=== PATIENT | female | born 1975 | race African-American/Black ===

== ENCOUNTER 2016-06-15 01:48 | Emergency (ER) | payer BC, OTHER ==
[2016-06-15] MEDS ORDERED: METOCLOPRAMIDE HCL 10 MG TABLET (FP) PO ONE ×2 (01:56→02:03)
--- NOTE | 2016-06-15 01:56 | PDOC ---
History of Present Illness - General History Source: Patient <Kam Layton - Last Filed: 06/15/16 02:10> - General History Source: Patient Exam Limitations: No Limitations - History of Present Illness Initial Comments: 06/15/16 02:14 The patient is a 40 year old female with no significant past medical history who presents to the ED for less than 24 hours of nausea and abdominal pain. Patient reports her daughter and sister are also ill at home with persistent vomiting. States she developed abdominal pain and nausea, but no vomiting or diarrhea. Her LMP was 5/5. The patient denies fever, chills, cough, SOB, chest pain, and palpitations. The patient denies dysuria, hematuria, urgency, and frequency. Allergies: NKDA Social History: No alcohol, tobacco, or drug use reported. Past Surgical History: None reported PCP: Dr. Evie Copeland <Amy Lomax - Last Filed: 06/15/16 02:15> - General Stated Complaint: NAUSEA Time Seen by Provider: 06/15/16 01:55 Past History - Past Medical History Anemia: No Asthma: No Cancer: No Cardiac Disorders: No Diabetes: No HTN: No Seizures: No Thyroid Disease: No - Surgical History Abdominal Surgery: No Appendectomy: No Cardiac Surgery: No - Reproductive History (#): 2 Para: 1 Ectopic : Yes Spontaneous : 1 - Immunization History Td Vaccination: Yes TDAP Vaccination: Yes Immunization Up to Date: Yes - Psycho/Social/Smoking Cessation Hx Anxiety: No Suicidal Ideation: No Smoking Status: No Smoking History: Never smoked Have you smoked in the past 12 months: No Number of Cigarettes Smoked Daily: 0 Hx Alcohol Use: No Drug/Substance Use Hx: No Substance Use Type: None Hx Substance Use Treatment: No <CalinKam - Last Filed: 06/15/16 02:10> <Amy Lomax - Last Filed: 06/15/16 02:15> - Past Medical History Allergies/Adverse Reactions: Allergies Allergy/AdvReac Type Severity Reaction Status Date / Time No Known Drug Allergies Allergy Verified 02/01/16 05:49 Home Medications: Ambulatory Orders Zolpidem Tartrate [Ambien Cr] 12.5 mg PO HS #10 tab.mphase MDD 1 02/01/16 Zolpidem Tartrate [Ambien Cr] 12.5 mg PO PRN #25 tab.mphase MDD 1 02/01/16 Zolpidem Tartrate [Ambien Cr] 12.5 mg PO HS #30 tab.mphase MDD 1 02/27/16 Metoclopramide HCl [Reglan] 10 mg PO QID #40 tablet 06/15/16 Review of Systems - Review of Systems Able to Perform ROS?: Yes Comments:: 06/15/16 02:15 CONSTITUTIONAL: Absent: fever, no chills, no fatigue EYES: Absent: visual changes ENT: Absent: ear pain, no sore throat CARDIOVASCULAR: Absent: chest pain, no palpitations RESPIRATORY: Absent: cough, no SOB GI: +abdominal pain, nausea Absent: no vomiting, no constipation, no diarrhea GENITOURINARY: Absent: dysuria, no frequency, no hematuria MUSCULOSKELETAL: Absent: back pain, no arthralgia, no myalgia SKIN: Absent: rash NEURO: Absent: headache <Amy Lomax - Last Filed: 06/15/16 02:15> *Physical Exam - Vital Signs Last Vital Signs Temp Pulse Resp BP Pulse Ox 98 F 78 17 112/85 100 06/15/16 01:57 06/15/16 01:57 06/15/16 01:57 06/15/16 01:57 06/15/16 01:57 - Physical Exam Comments: 06/15/16 02:15 GENERAL: Well-appearing, well-nourished. No apparent distress. HEENT: Normocephalic, atraumatic. PERRL, EOM intact. CARDIOVASCULAR: Normal S1, S2. Regular rate and rhythm. PULMONARY: Clear to auscultation bilaterally. ABDOMEN: Soft, non-distended, mild diffuse tenderness. No rebound or guarding EXTREMITIES: Normal ROM in all four extremities. No gross deformities. SKIN: Warm, dry. No rash NEUROLOGICAL: No focal neurological deficits. <Amy Lomax - Last Filed: 06/15/16 02:15> ED Treatment Course - Medications Given in the ED: ED Medications Discontinued Medications Generic Name Dose Route Start Last Admin Trade Name Freq PRN Reason Stop Dose Admin Metoclopramide HCl 10 mg 06/15/16 01:56 06/15/16 02:05 Reglan - PO 06/15/16 01:57 10 mg ONCE ONE Administration <Amy Lomax - Last Filed: 06/15/16 02:15> Medical Decision Making - Medical Decision Making 06/15/16 02:11 Dr. Layton: The scribe's documentation has been prepared under my direction and personally reviewed by me in its entirery. I confirm that the note above accurately reflects all work, treatment, procedures, and medical decision making performed by me. <Kam Layton - Last Filed: 06/15/16 02:10> *DC/Admit/Observation/Transfer - Discharge Dispostion Admit: No <Kam Layton - Last Filed: 06/15/16 02:10> - Attestations Scribe Attestion: 06/15/16 02:15 Documentation prepared by Amy Lomax, acting as medical liaison for Kam Layton MD/DO. <Amy Lomax - Last Filed: 06/15/16 02:15> Diagnosis at time of Disposition: Nausea - Discharge Dispostion Disposition: HOME Condition at time of disposition: Stable - Prescriptions Prescriptions: Metoclopramide HCl [Reglan] 10 mg PO QID #40 tablet - Referrals Referrals: Evie Copeland [Primary Care Provider] - - Patient Instructions Printed Discharge Instructions: DI for Nausea -- Adult
[2016-06-15 02:01] VITALS: BP 112/85; PULSE 78; TEMP 98; BMI 30.7
== END 2016-06-15 02:28 | disposition home or self-care (01) ==
LOC: JER 01:48
DX: R11.0 Nausea (principal)
CPT/HCPCS: 99282-25

== ENCOUNTER 2017-06-29 18:39 | Emergency (ER) | payer OTHER ==
[2017-06-29 18:47] VITALS: BP 98/73; PULSE 133; TEMP 102; BMI 29.7
[2017-06-29] MEDS ORDERED: ONDANSETRON 4 MG/2 ML VIAL IVPUSH ONE (18:52)
[2017-06-29] MEDS ORDERED: SODIUM CHLORIDE 0.9% 1000 ML INFUS.BAG IV ONE (18:52)
[2017-06-29] MEDS ORDERED: ACETAMINOPHEN 1000 MG/100 ML VIAL (NON FORMULARY) IVPB ONE (18:52)
--- NOTE | 2017-06-29 18:52 | PDOC ---
History of Present Illness - General History Source: Patient, Old Records Exam Limitations: No Limitations - History of Present Illness Initial Comments: 06/29/17 19:34 The patient is a 41 year old female, with no significant past medical history, who presents to the emergency department complaining of fever, chills, sore throat, nausea, vomiting and diarrhea since this morning. She describes her vomit as nonbloody and nonbilious. She describes her diarrhea as nonbloody. She notes that its uncomfortable for her to swallow or eat anything. She reports taking 600 mg of Motrin every 4 hours, with her last dose being at 9am this morning. She denies receiving the flu shot this year. The patient denies chest pain, shortness of breath, headache or dizziness. Denies dysuria, frequency, urgency and hematuria. LMP: Current Allergies: None Past surgical history: None reported Social History: No alcohol, tobacco or drug use reported PMD: Dr. Evie Copeland <Kam Rodriguez - Last Filed: 06/29/17 19:34> <Melida Dallas - Last Filed: 06/29/17 21:14> - General Chief Complaint: Cold Symptoms Stated Complaint: FEVER Time Seen by Provider: 06/29/17 18:42 Past History <Kam Rodriguez - Last Filed: 06/29/17 19:34> - Past Medical History Anemia: No Asthma: No Cancer: No Cardiac Disorders: No COPD: No Diabetes: No HTN: No Seizures: No Thyroid Disease: No - Surgical History Abdominal Surgery: No Appendectomy: No Cardiac Surgery: No - Reproductive History (#): 2 Para: 1 Ectopic : Yes Spontaneous : 1 - Immunization History Td Vaccination: Yes TDAP Vaccination: Yes Immunization Up to Date: Yes - Suicide/Smoking/Psychosocial Hx Smoking Status: No Smoking History: Never smoked Have you smoked in the past 12 months: No Number of Cigarettes Smoked Daily: 0 Information on smoking cessation initiated: No Hx Alcohol Use: No Drug/Substance Use Hx: No Substance Use Type: None Hx Substance Use Treatment: No <Melida Dallas - Last Filed: 06/29/17 21:14> - Past Medical History Allergies/Adverse Reactions: Allergies Allergy/AdvReac Type Severity Reaction Status Date / Time No Known Drug Allergies Allergy Verified 06/29/17 18:47 Home Medications: Ambulatory Orders Amoxicillin/Potassium Clav [Augmentin 875-125 Tablet] 1 each PO BID #20 tablet 06/29/17 Ondansetron [Ondansetron Odt] 8 mg PO TID PRN #15 tab.rapdis 06/29/17 Ranitidine [Zantac -] 150 mg PO DAILY #14 tablet 06/29/17 Review of Systems - Review of Systems Able to Perform ROS?: Yes Comments:: 06/29/17 19:28 GENERAL/CONSTITUTIONAL: (+) fever and chills. No weakness. HEAD, EYES, EARS, NOSE AND THROAT: (+) Sore throat. No change in vision. No ear pain or discharge. GASTROINTESTINAL: (+) nausea, vomiting, diarrhea. No constipation. GENITOURINARY: No dysuria, frequency, or change in urination. CARDIOVASCULAR: No chest pain or shortness of breath. RESPIRATORY: No cough, wheezing, or hemoptysis. MUSCULOSKELETAL: No joint or muscle swelling or pain. No neck or back pain. SKIN: No rash NEUROLOGIC: No headache, vertigo, loss of consciousness, or change in strength/ sensation. ENDOCRINE: No increased thirst. No abnormal weight change. HEMATOLOGIC/LYMPHATIC: No anemia, easy bleeding, or history of blood clots. ALLERGIC/IMMUNOLOGIC: No hives or skin allergy. <Kam Rodriguez - Last Filed: 06/29/17 19:34> *Physical Exam - Vital Signs Last Vital Signs Temp Pulse Resp BP Pulse Ox 102.0 F H 133 H 20 98/73 100 06/29/17 18:44 06/29/17 18:44 06/29/17 18:44 06/29/17 18:44 06/29/17 18:44 - Physical Exam Comments: 06/29/17 19:27 Constitutional: (+) Febrile. Awake, alert, oriented. No acute distress. Head: Normocephalic. Atraumatic Eyes: PERRL. EOMI. Conjunctivae are not pale. ENT: (+) Hoarse Voice. Mucous membranes are moist and intact. Posterior pharynx without exudates or erythema. Uvula midline. Neck: Supple. Full ROM. No lymphadenopathy. Cardiovascular: (+) Tachycardia. Regular rhythm. S1, S2 regular. Distal pulses are 2+ and symmetric. Pulmonary/Chest: No evidence of respiratory distress. Clear to auscultation bilaterally No wheezing, rales or rhonchi. Abdominal: Soft and non-distended. There is no tenderness. No rebound, guarding or rigidity. No organomegaly. No palpable masses. Good bowel sounds. Back: No CVA tenderness. Musculoskeletal: No edema. No cyanosis. No clubbing. Full range of motion in all extremities. Nocalf tenderness. Radial/pedal pulses are intact and 2+ bilaterally Skin: Skin is warm and dry. No petechiae. No purpura. Neurological: Alert and oriented to person, place, and time. Cranial nerves II -XII are grossly intact. Normal speech. Strength is grossly symmetric. No sensory deficits. Psychiatric: Good eye contact. Normal interaction, affect and behavior. <Kam Rodriguez - Last Filed: 06/29/17 19:34> - Vital Signs Last Vital Signs Temp Pulse Resp BP Pulse Ox 102.0 F H 133 H 20 98/73 100 06/29/17 18:44 06/29/17 18:44 06/29/17 18:44 06/29/17 18:44 06/29/17 18:44 <Melida Dallas - Last Filed: 06/29/17 21:14> Heart Score/ECG Review - ECG Intrepretation Comment:: 06/29/17 19:52 sinus tach at 115, nl axis, nl interval, no acute st/t wave findings <Melida Dallas - Last Filed: 06/29/17 21:14> ED Treatment Course - LABORATORY CBC & Chemistry Diagram: 06/29/17 19:20 06/29/17 19:09 - Medications Given in the ED: ED Medications Discontinued Medications Generic Name Dose Route Start Last Admin Trade Name Freq PRN Reason Stop Dose Admin Acetaminophen 1,000 mg 06/29/17 18:52 06/29/17 19:20 Ofirmev Injection - IVPB 06/29/17 18:53 1,000 mg ONCE ONE Administration Ondansetron HCl 4 mg 06/29/17 18:52 06/29/17 19:20 Zofran Injection IVPUSH 06/29/17 18:53 4 mg ONCE ONE Administration Sodium Chloride 1,000 ml 06/29/17 18:52 06/29/17 19:19 Normal Saline - IV 06/29/17 18:53 1,000 ml ONCE ONE Administration <Kam Rodriguez - Last Filed: 06/29/17 19:34> - LABORATORY CBC & Chemistry Diagram: 06/29/17 19:20 06/29/17 19:09 <Melida Dallas - Last Filed: 06/29/17 21:14> Medical Decision Making - Medical Decision Making 06/29/17 19:53 a/p: 41yo female with fevers, chills, rigors since yesterday -sore throat and rhinorrhea since yesterday taking motrin 600mg q4 with persistent fevers -n/v/d today after 9am dose of motrin -concern for strep vs flu -will send labs, cultures, cxr strep and flu swab ivf hydration, tylenol, zofran, pepcid will monitor and reassess 06/29/17 21:10 pt feeling much better fever resolved strep + will start augmentin <Melida Dallas - Last Filed: 06/29/17 21:14> *DC/Admit/Observation/Transfer - Attestations Scribe Attestion: 06/29/17 19:26 Documentation prepared by Kam Rodriguez, acting as medical radiation dosimetrist for Melida Dallas DO <Kam Rodriguez - Last Filed: 06/29/17 19:34> - Discharge Dispostion Decision to Admit order: No - Attestations Physician Attestion: 06/29/17 21:14 I, Dr. Melida Dallas DO, attest that this document has been prepared under my direction and personally reviewed by me in its entirety. I further attest, that it accurately reflects all work, treatment, procedures and medical decision -making performed by me. <Melida Dallas - Last Filed: 06/29/17 21:14> Diagnosis at time of Disposition: Strep pharyngitis - Discharge Dispostion Disposition: HOME Condition at time of disposition: Stable - Prescriptions Prescriptions: Amoxicillin/Potassium Clav [Augmentin 875-125 Tablet] 1 each PO BID #20 tablet Ondansetron [Ondansetron Odt] 8 mg PO TID PRN #15 tab.rapdis PRN Reason: Nausea Ranitidine [Zantac -] 150 mg PO DAILY #14 tablet - Referrals Referrals: Evie Copeland [Primary Care Provider] - - Patient Instructions Printed Discharge Instructions: DI for Strep Throat Additional Instructions: Please drink plenty of fluids. Please alternate tylenol or motrin for the fever. Please take all antibiotics as prescribed. Please follow up with your PMD in 2-3 days. Please re-see me in the ED if anything worsens. - Post Discharge Activity Forms/Work/School Notes: Back to Work
[2017-06-29] MEDS ORDERED: ONDANSETRON 4 MG/2 ML VIAL ONE (19:12)
[2017-06-29] MEDS ORDERED: FAMOTIDINE 20 MG/50 ML IVPB 20 MG/50 ML MG IVPB ONE ×2 (19:12→19:15)
[2017-06-29] MEDS ORDERED: ACETAMINOPHEN INJECTION 100 ML IVPB ONE (19:12)
[2017-06-29 19:40] LABS: BASO % 0.3 % (0-2.0); EOS % 0.7 % (0-4.5); HEMATOCRIT 35.2 % (32.4-45.2); HEMOGLOBIN 11.4 GM/dL (10.7-15.3); LYMPH % 7.9 % (8-40); MCH 25.3 pg (25.7-33.7); MCHC 32.4 g/dl (32.0-36.0); MEAN CELL VOLUME 78.1 fl (80-96); MEAN PLT VOLUME 8.9 fl (7.5-11.1); MONO % 10.2 % (3.8-10.2); NEUT % 80.9 % (42.8-82.8); PLATELET COUNT 284 K/MM3 (134-434); RBC 4.51 M/mm3 (3.60-5.2); RDW 15.5 % (11.6-15.6); WHITE BLOOD COUNT 14.8 K/mm3 (4.0-10.0)
[2017-06-29 20:16] LABS: ALBUMIN 3.7 g/dl (3.4-5.0); ANION GAP 11 (8-16); BLOOD UREA NITROGEN 10 mg/dL (7-18); CALCIUM 8.8 mg/dL (8.5-10.1); CHLORIDE 103 mmol/L (98-107); CO2 24 mmol/L (21-32); GLUCOSE,RANDOM 91 mg/dL (74-106); LIPASE 78 U/L (73-393); MAGNESIUM 2.2 mg/dL (1.8-2.4); POTASSIUM 3.7 mmol/L (3.5-5.1); SODIUM 138 mmol/L (136-145)
[2017-06-29 20:25] LABS: ALK PHOS 84 U/L (45-117); BILIRUBIN,TOTAL 0.5 mg/dL (0.2-1.0); SGOT/AST 13 U/L (15-37); SGPT/ALT 10 U/L (12-78)
[2017-06-29] MEDS ORDERED: AMOX TR/POT CLAV 875MG/125MG TABLETS (FP) PO ONE (21:10)
[2017-06-29] MEDS ORDERED: AMOX TR/POT CLAV 875MG/125MG TABLETS (FP) ONE (21:22)
[2017-06-29] MEDS ORDERED: FLUCONAZOLE 100 MG TABLET (UD) ONE (21:24)
--- NOTE | 2017-06-30 10:44 | EKG ---
Test Reason : Blood Pressure : / mmHG Vent. Rate : 115 BPM Atrial Rate : 115 BPM P-R Int : 140 ms QRS Dur : 072 ms QT Int : 318 ms P-R-T Axes : 066 060 057 degrees QTc Int : 439 ms SINUS TACHYCARDIA POSSIBLE LEFT ATRIAL ENLARGEMENT WHEN COMPARED WITH ECG OF 18-AUG-2015 08:34, VENT. RATE HAS INCREASED BY 44 BPM Confirmed by LAURIE RAGSDALE MD ([id number]) on 06/30/2017 10:44:29 AM Referred By: Confirmed By:LAURIE RAGSDALE MD
== END 2017-06-29 21:30 | disposition home or self-care (01) ==
LOC: JER 18:39
PROC: 3E033GC Introduction of Other Therapeutic Substance into Peripheral Vein, Percutaneous Approach (ICD-10-PCS; principal; 2017-06-29)
PROC: 3E033NZ Introduction of Analgesics, Hypnotics, Sedatives into Peripheral Vein, Percutaneous Approach (ICD-10-PCS; 2017-06-29)
PROC: 3E033GC Introduction of Other Therapeutic Substance into Peripheral Vein, Percutaneous Approach (ICD-10-PCS; 2017-06-29)
DX: J02.0 Streptococcal pharyngitis (principal); B95.0 Streptococcus, group A, as the cause of diseases classified elsewhere
CPT/HCPCS: 36415; 71045-TC-FY; 80053; 83036; 83605; 83690; 83735; 85025; 87040; 87070; 87077; 87430; 87804; 93005; 93010; 99283-25; J0131; J7030

== ENCOUNTER 2018-05-10 20:14 | Emergency (ER) | payer OTHER ==
--- NOTE | 2018-05-10 20:23 | PDOC ---
History of Present Illness - History of Present Illness Initial Comments: The patient is a 42 year old female, with a significant PMH of ductal carcinoma breast cancer (s/p bilateral mastectomy without lymph node dissection and supraclavicular lymph node (present since she was a child, and was previously biopsied and normal), hormone therapy in over a year, chemotherapy, or radiation ), who presents to the emergency department today complaining of night sweats for 2 weeks. Patient notes an increase in sweat throughout the night for the past two weeks, causing her to wake up and have to change both her sheets and clothes. She denies any recent weight loss or pain. Patient notes feeling what she thought was a left groin lymph node, which arose right around her menstrual cycle (2 weeks ago) but has since resolved. The patient denies chest pain, shortness of breath, headache and dizziness. Denies fever, chills, nausea, vomit, diarrhea and constipation. Denies dysuria, frequency, urgency and hematuria. Allergies: NKA Past surgical history: Bilateral mastectomy, , salpingectomy for ectopic , lymph node biopsy in left supraclavicular area Social history: No reported PCP: Dr. Evie Copeland 05/10/18 21:07 <Jacquelyn Pulliam - Last Filed: 05/10/18 21:07> <Melida Dallas - Last Filed: 05/10/18 22:00> - General Stated Complaint: NIGHT SWEATS Time Seen by Provider: 05/10/18 20:21 Past History <Jacquelyn Pulliam - Last Filed: 05/10/18 21:07> - Past Medical History Anemia: No Asthma: No Cancer: No Cardiac Disorders: No COPD: No Diabetes: No HTN: No Seizures: No Thyroid Disease: No - Surgical History Abdominal Surgery: No Appendectomy: No Cardiac Surgery: No - Reproductive History (#): 2 Para: 1 Ectopic : Yes Spontaneous : 1 - Immunization History Td Vaccination: Yes TDAP Vaccination: Yes Immunization Up to Date: Yes - Suicide/Smoking/Psychosocial Hx Smoking Status: No Smoking History: Never smoked Have you smoked in the past 12 months: No Number of Cigarettes Smoked Daily: 0 Hx Alcohol Use: No Drug/Substance Use Hx: No Substance Use Type: None Hx Substance Use Treatment: No <Melida Dallas - Last Filed: 05/10/18 22:00> - Past Medical History Allergies/Adverse Reactions: Allergies Allergy/AdvReac Type Severity Reaction Status Date / Time No Known Drug Allergies Allergy Verified 05/10/18 20:47 Home Medications: Ambulatory Orders NK [No Known Home Medication] 05/10/18 Review of Systems - Review of Systems Comments:: GENERAL/CONSTITUTIONAL: +Recurring night sweats. No fever or chills. No weakness. HEAD, EYES, EARS, NOSE AND THROAT: +Supraclavicular lymph node present since childhood and biopsied as normal. No change in vision. No ear pain or discharge. No sore throat. CARDIOVASCULAR: No chest pain or shortness of breath. RESPIRATORY: No cough, wheezing, or hemoptysis. GASTROINTESTINAL: No nausea, vomiting, diarrhea or constipation. GENITOURINARY: No dysuria, frequency, or change in urination. MUSCULOSKELETAL: No joint or muscle swelling or pain. No neck or back pain. SKIN: No rash NEUROLOGIC: No headache, vertigo, loss of consciousness, or change in strength/ sensation. ENDOCRINE: No increased thirst. No abnormal weight change. HEMATOLOGIC/LYMPHATIC: No anemia, easy bleeding, or history of blood clots. ALLERGIC/IMMUNOLOGIC: No hives or skin allergy. 05/10/18 21:08 <Jacquelyn Pulliam - Last Filed: 05/10/18 21:07> *Physical Exam - Vital Signs Last Vital Signs Temp Pulse Resp BP Pulse Ox 98.1 F 90 18 120/84 100 05/10/18 20:35 05/10/18 20:35 05/10/18 20:35 05/10/18 20:35 05/10/18 20:35 - Physical Exam Comments: GENERAL: +Diffuse clamminess. Awake, alert, and fully oriented, in no acute distress HEAD: No signs of trauma EYES: PERRLA, EOMI, sclera anicteric, conjunctiva clear ENT: Auricles normal inspection, hearing grossly normal, nares patent, oropharynx clear without exudates. Moist mucosa. NECK: +Palpable supraclavicular lymph node. Normal ROM, supple, no lymphadenopathy, JVD, or masses LUNGS: Breath sounds equal, clear to auscultation bilaterally. No wheezes, and no crackles HEART: Regular rate and rhythm, normal S1 and S2, no murmurs, rubs or gallops CHEST: +Reconstructed breast secondary to bilateral mastectomy. ABDOMEN: Soft, nontender, normoactive bowel sounds. No guarding, no rebound. No masses GENITAL: No palpable lymph node. EXTREMITIES: Normal range of motion, no edema. No clubbing or cyanosis. No cords, erythema, or tenderness. No palpable lymph nodes. NEUROLOGICAL: Cranial nerves II through XII grossly intact. Normal speech, normal gait SKIN: Warm, Dry, normal turgor, no rashes or lesions noted. 05/10/18 21:08 <Jacquelyn Pulliam - Last Filed: 05/10/18 21:07> ED Treatment Course - LABORATORY CBC & Chemistry Diagram: 05/10/18 20:30 05/10/18 20:30 - ADDITIONAL ORDERS Additional order review: 05/10/18 20:30 RBC 4.53 MCV 74.8 L MCHC 32.0 RDW 16.2 H MPV 8.1 Neutrophils % 45.8 D Lymphocytes % 40.8 H D Monocytes % 8.3 Eosinophils % 4.6 H D Basophils % 0.5 <Jacquelyn Pulliam - Last Filed: 05/10/18 21:07> - LABORATORY CBC & Chemistry Diagram: 05/10/18 20:30 05/10/18 20:30 <Melida Dallas - Last Filed: 05/10/18 22:00> Medical Decision Making - Medical Decision Making 05/10/18 20:39 a/p: 42yo female with hx of breast ca s/p b/l mastectomy with night sweats/no wt loss x weeks -no recent illnesses -denies pain or lymphadenopathy -no cp/sob/abd pain -no fevers/chills -wakes up to change her sheets multiple times a night -Dr. Ba is Onc -Dr. Pace is WINE MANAGER -Dr. Copeland is pmd -will send labs -pt will need outpt follow up with docs <Melida Dallas - Last Filed: 05/10/18 22:00> *DC/Admit/Observation/Transfer - Attestations Scribe Attestion: Documentation prepared by ABIMAEL Shukla, acting as center medical director for Melida Dallas DO. 05/10/18 21:08 <Jacquelyn Pulliam - Last Filed: 05/10/18 21:07> - Discharge Dispostion Decision to Admit order: No - Attestations Physician Attestion: 05/10/18 20:45 I, Dr. Melida Dallas, DO, attest that this document has been prepared under my direction and personally reviewed by me in its entirety. I further attest, that it accurately reflects all work, treatment, procedures and medical decision -making performed by me. <Melida Dallas - Last Filed: 05/10/18 22:00> Diagnosis at time of Disposition: Night sweats - Discharge Dispostion Disposition: HOME Condition at time of disposition: Stable - Referrals Referrals: Evie Copeland [Primary Care Provider] - Mango Pace MD [Staff Physician] - - Patient Instructions Printed Discharge Instructions: Hyperhidrosis Additional Instructions: Wallace: Please call your oncologist, your pmd, and your WINE MANAGER tomorrow. I want you to have a repeat MRI done. I want you to call me with your results. . If you ever need anything please call me. I am here to help any way I can.
[2018-05-10 20:49] VITALS: BP 120/84; PULSE 90; TEMP 98.1; BMI 32.5
[2018-05-10 21:01] LABS: BASO % 0.5 % (0-2.0); EOS % 4.6 % (0-4.5); HEMATOCRIT 33.9 % (32.4-45.2); HEMOGLOBIN 10.9 GM/dL (10.7-15.3); LYMPH % 40.8 % (8-40); MEAN CELL VOLUME 74.8 fl (80-96); MEAN PLT VOLUME 8.1 fl (7.5-11.1); MONO % 8.3 % (3.8-10.2); NEUT % 45.8 % (42.8-82.8); PLATELET COUNT 290 K/MM3 (134-434); RBC 4.53 M/mm3 (3.60-5.2); RDW 16.2 % (11.6-15.6); WHITE BLOOD COUNT 5.7 K/mm3 (4.0-10.0)
[2018-05-10 21:34] LABS: ALBUMIN 3.9 g/dl (3.4-5.0); ALK PHOS 59 U/L (45-117); ANION GAP 8 MMOL/L (8-16); BILIRUBIN,TOTAL 0.3 mg/dL (0.2-1); BLOOD UREA NITROGEN 18 mg/dL (7-18); CALCIUM 8.8 mg/dL (8.5-10.1); CHLORIDE 105 mmol/L (98-107); CO2 27 mmol/L (21-32); CREATININE 1.2 mg/dL (0.55-1.3); GLUCOSE,RANDOM 93 mg/dL (74-106); MAGNESIUM 2.4 mg/dL (1.8-2.4); POTASSIUM 3.9 mmol/L (3.5-5.1); SGOT/AST 18 U/L (15-37); SGPT/ALT 13 U/L (13-61); SODIUM 139 mmol/L (136-145)
[2018-05-12 03:11] LABS: FOLLICLE STIMULATING HORMONE 5.1 mIU/mL (.)
== END 2018-05-10 21:17 | disposition home or self-care (01) ==
LOC: JER 20:14
DX: R61 Generalized hyperhidrosis (principal); Z85.3 Personal history of malignant neoplasm of breast; Z90.13 Acquired absence of bilateral breasts and nipples
CPT/HCPCS: 36415; 80053; 83001; 83002; 83735; 84439; 84443; 85025; 99282-25

== ENCOUNTER 2020-11-04 19:00 | Emergency (ER) | payer OTHER | END 2020-11-04 19:06 | disposition home or self-care (01) | LOC: JVIRT 19:00 | DX: Z11.52 Encounter for screening for COVID-19 (principal) | CPT/HCPCS: C9803; Q3014-GT; U0003; U0005 ==

== ENCOUNTER 2022-07-27 17:56 | Emergency (ER) | payer BC, OTHER ==
[2022-07-27 18:22] VITALS: BP 116/77; PULSE 72; TEMP 98.4; BMI 30.2
[2022-07-27] MEDS ORDERED: ACETAMINOPHEN 1000 MG/100 ML BAG IVPB ONE (18:29)
[2022-07-27] MEDS ORDERED: ONDANSETRON 4 MG/2 ML VIAL IVPUSH ONE (18:29)
[2022-07-27] MEDS ORDERED: SODIUM CHLORIDE 0.9% 1000 ML INFUS.BAG IV ONE (18:29)
[2022-07-27] MEDS ORDERED: FAMOTIDINE 20 MG/50 ML IVPB 20 MG/50 ML MG IVPB ONE ×2 (18:29→18:44)
[2022-07-27] MEDS ORDERED: ACETAMINOPHEN INJECTION 100 ML IVPB ONE (18:44)
[2022-07-27] MEDS ORDERED: ONDANSETRON 4 MG/2 ML VIAL ONE (18:44)
[2022-07-27 18:58] LABS: HEMATOCRIT 37.3 % (32.4-45.2); HEMOGLOBIN 12.6 G/dL (10.7-15.3); MCH 29.7 pg (25.7-33.7); MCHC 33.7 g/dl (32.0-36.0); MEAN CELL VOLUME 88.2 fl (80-96); MEAN PLT VOLUME 9.2 fl (7.5-11.1); RBC 4.23 10^6/uL (3.60-5.2); RDW 14.4 % (11.6-15.6); WHITE BLOOD COUNT 4.7 10^3/uL (4.0-10.8)
[2022-07-27 19:03] LABS: INR 0.99 (0.83-1.09); PROTHROMBIN TIME (PATIENT) 11.5 SEC (9.7-13.0)
[2022-07-27 19:05] LABS: ACTIVATED PTT 27.7 SECONDS (25.2-36.5)
[2022-07-27 19:11] LABS: ALBUMIN 4.4 g/dl (3.4-5.0); BILIRUBIN,TOTAL 0.4 mg/dl (0.2-1); BLOOD UREA NITROGEN 15.1 mg/dl (7-18); CALCIUM 9.8 mg/dl (8.5-10.1); CREATININE 1.4 mg/dl (0.6-1.3); MAGNESIUM 2.2 mg/dL (1.8-2.4); POTASSIUM 3.9 mmol/L (3.5-5.1); SGOT/AST 14.2 U/L (15-37); SGPT/ALT 7.6 U/L (7-52); TOT PROT 6.9 g/dl (6.4-8.2)
[2022-07-27 20:07] LABS: PLATELET ESTIMATE ADEQUATE
== END 2022-07-27 22:03 | disposition home or self-care (01) ==
LOC: FER 17:56
PROC: 3E03329 Introduction of Other Anti-infective into Peripheral Vein, Percutaneous Approach (ICD-10-PCS; principal; 2022-07-27)
PROC: 3E033NZ Introduction of Analgesics, Hypnotics, Sedatives into Peripheral Vein, Percutaneous Approach (ICD-10-PCS; 2022-07-27)
PROC: 3E033GC Introduction of Other Therapeutic Substance into Peripheral Vein, Percutaneous Approach (ICD-10-PCS; 2022-07-27)
DX: R11.2 Nausea with vomiting, unspecified (principal)
CPT/HCPCS: 36415; 71045-TC-FY; 74177-TC; 80053; 81003; 81025; 83690; 83735; 84484; 84703; 85027; 85610; 85730; 87086; 93005; 99285-25; Q9967

== ENCOUNTER 2024-01-26 06:18 | Day surgery (SDC) | payer BC, OTHER ==
[2024-01-23 15:41] VITALS: BMI 29.2
[2024-01-26] MEDS ORDERED: BUPIVACAINE HCL/EPINEPHRINE/PF 30 ML VIAL IJ ONE (07:21)
[2024-01-26] MEDS ORDERED: LIDOCAINE HCL 1%, 10 MG/ML (20ML VIAL) ONE (07:21)
[2024-01-26] MEDS ORDERED: BUPIVACAINE HCL/PF 2.5 MG/ML - 30 ML VIAL IJ ONE (07:21)
[2024-01-26] MEDS ORDERED: LIDOCAINE 1%/EPI 1:100000 (20 ML MULTI DOSE VIAL) ONE (07:21)
[2024-01-26] MEDS ORDERED: MIDAZOLAM HCL 2 MG/2 ML SINGLE DOSE VIAL ONE ×2 (07:35→08:17)
[2024-01-26] MEDS ORDERED: PROPOFOL 40 ML ONE (07:35)
[2024-01-26] MEDS ORDERED: ROCURONIUM BROMIDE 50 MG/5 ML SYRINGE ONE (07:38)
[2024-01-26] MEDS ORDERED: SUCCINYLCHOLINE CHLORIDE 200 MG/10 ML SYRINGE ONE (07:38)
[2024-01-26] MEDS ORDERED: ONDANSETRON 4 MG/2 ML VIAL ONE (08:26)
[2024-01-26] MEDS ORDERED: DEXAMETHASONE SOD PHOSPHATE 4 MG/1 ML VIAL ONE (08:26)
[2024-01-26] MEDS ORDERED: ceFAZolin SODIUM 1 GM VIAL ONE (08:26)
[2024-01-26] MEDS ORDERED: SUGAMMADEX SODIUM 200 MG/2 ML VIAL ONE (08:28)
[2024-01-26] MEDS ORDERED: LIDOCAINE HCL/PF 2% SDV 5ML VIAL ONE (09:09)
[2024-01-26] MEDS ORDERED: METOCLOPRAMIDE HCL INJECTION 10 MG/2 ML VIAL ONE (09:09)
[2024-01-26] MEDS ORDERED: KETOROLAC TROMETHAMINE 30 MG/1 ML VIAL ONE (09:09)
[2024-01-26] MEDS ORDERED: oxyCODONE HCL 5 MG TABLET PO PRN (10:51)
[2024-01-26] MEDS ORDERED: ONDANSETRON 4 MG/2 ML VIAL IVPUSH PRN (10:51)
[2024-01-26] MEDS ORDERED: LACTATED RINGERS SOLUTION 1,000 ML IV SCH (11:00)
[2024-01-26] MEDS: ACETAMINOPHEN 1000 MG/100 ML BAG IVPB ONE (11:00)
[2024-01-26] MEDS ORDERED: FENTANYL CITRATE/PF 50 MCG/ML VIAL ONE (11:12)
[2024-01-26 12:33] VITALS: TEMP 97
[2024-01-26 12:34] VITALS: RESP 17
[2024-01-26 12:48] VITALS: BP 124/73; PULSE 78
== END 2024-01-26 13:10 | disposition home or self-care (01) ==
LOC: FASU 06:18
PROVIDERS: ATTEND Plastic Surgery
PROC: 0HPU0JZ Removal of Synthetic Substitute from Left Breast, Open Approach (ICD-10-PCS; principal; 2024-01-26 08:41)
PROC: 0HPT0JZ Removal of Synthetic Substitute from Right Breast, Open Approach (ICD-10-PCS; 2024-01-26 08:41)
PROC: 0HRV0JZ Replacement of Bilateral Breast with Synthetic Substitute, Open Approach (ICD-10-PCS; 2024-01-26 08:41)
DX: T85.44XA Capsular contracture of breast implant, initial encounter (principal); Y82.8 Other medical devices associated with adverse incidents; Y92.9 Unspecified place or not applicable; Z85.3 Personal history of malignant neoplasm of breast
CPT/HCPCS: 15777; 19342; 19371; L8600; 81025; 88300-TC; 88304-TC; 94760; C1789; J0131; Q4116